=== PATIENT | female | born 1995 | race Two or more races ===

== ENCOUNTER 2022-11-29 21:13 | Emergency (ER) | payer OTHER ==
[~2022-11-29] VITALS: Ht 175.3 cm; Wt 87.5 kg
[2022-11-29] MEDS ORDERED: ZYRTEC10 MG PO (21:42)
[2022-11-29] MEDS ORDERED: TUSNEL LIQUID178 ML PO (21:42)
[2022-11-29] MEDS ORDERED: ZITHROMAX500 MG PO (21:42)
[2022-11-29] MEDS ORDERED: DOLOGEN CAPLET1 EACH PO (21:42)
== END 2022-11-29 22:06 | disposition home or self-care (01) ==
LOC: ER 21:13
DX: B34.9 Viral infection, unspecified (principal); Z88.6 Allergy status to analgesic agent

== ENCOUNTER 2023-02-15 19:39 | Emergency (ER) | payer OTHER ==
[~2023-02-15] VITALS: Ht 175.3 cm; Wt 88.9 kg
[~2023-02-15 19:39] MED LIST: DOLOGEN CAPLET1 EACH PO; TUSNEL LIQUID178 ML PO; ZITHROMAX500 MG PO; ZYRTEC10 MG PO
== END 2023-02-16 00:04 | disposition home or self-care (01) ==
LOC: ER 19:39
DX: M54.9 Dorsalgia, unspecified (principal)